=== PATIENT | female | born 1980 | race Caucasian/White ===

== ENCOUNTER 2016-09-28 10:52 | Emergency (ER) | payer BC ==
[2016-09-28 11:22] VITALS: BP 115/68; PULSE 83; RESP 18; TEMP 98.1; O2SAT 93
--- NOTE | 2016-09-28 12:17 | UCPHY ---
H & P Time Seen by Provider: 09/28/16 11:52 Patient Type: Established HPI/ROS: This patient presents with a chief complaint of facial discomfort and is concerned she may have a sinus infection. She became ill 6 days ago with congestion, mild cough some intermittent shortness of breath which is not currently bothering her and last night had a temperature of 99.7degrees degrees with some chills. She has no sore throat. She has pressure in her ears but no actual pain. She denies chest pain. REVIEW OF SYSTEMS: Constitutional: Malaise, fever, chills Eyes: No complaints ENT: See above Respiratory: Mild cough, occasional shortness of breath Cardiac: No chest pain Gastrointestinal: Not addressed Genitourinary: Not addressed Musculoskeletal: No myalgias Skin: No rash Neurological: Headache Smoking Status: Former smoker Physical Exam: GENERAL: Well-appearing, well-nourished and in no acute distress. HEAD: Atraumatic, normocephalic. EYES: Pupils equal round and reactive to light, extraocular movements intact, sclera anicteric, conjunctiva are normal. ENT: TMs normal, nares patent but injected and slightly edematous, oropharynx clear without exudates. Moist mucous membranes. No significant tenderness over the facial sinuses NECK: Normal range of motion, supple without lymphadenopathy or JVD. LUNGS: Breath sounds clear to auscultation bilaterally and equal. No wheezes rales or rhonchi. HEART: Regular rate and rhythm without murmurs, rubs or gallops. EXTREMITIES: Normal range of motion NEUROLOGICAL: Cranial nerves II through XII grossly intact. Normal speech, normal gait. PSYCH: Normal mood, normal affect. SKIN: Warm, dry, normal turgor, no visible rashes or lesions. Constitutional: Initial Vital Signs Temperature (C) 36.7 C 09/28/16 11:20 Heart Rate 83 09/28/16 11:20 Respiratory Rate 18 09/28/16 11:20 Blood Pressure 115/68 09/28/16 11:20 O2 Sat (%) 93 09/28/16 11:20 O2 Delivery Mode Room Air Allergies/Adverse Reactions: No Known Allergies Allergy (Verified 09/28/16 11:15) Home Medications: Medication Instructions Recorded Cholestyramine (with Sugar) 1.75 tsp PO DAILY@14 02/22/15 [CHOLESTYRAMINE POWDER] Herbals/Supplements -Info Only 1 ea PO DAILY 02/23/15 Indomethacin 50 mg PO BID 02/23/15 LORazepam [Ativan (*)] 0.5 - 1 mg PO Q8 PRN #10 tab 02/26/15 oxyCODONE IR [Oxycodone Ir (*)] 5 - 10 mg PO Q3 PRN #10 tab 02/26/15 Ondansetron Odt [Zofran Odt 4 mg 4 mg PO Q4 PRN #20 tab 04/21/15 (RX)] Ranitidine HCl [Zantac] 150 mg PO DAILY #30 tablet 04/21/15 Medical Decision Making Differential Diagnosis: I believe that this patient has a viral syndrome that antibiotics are not indicated. I find no evidence of recurrence of her pericarditis or any other complicating features. Departure - Departure Disposition: Home, Routine, Self-Care Clinical Impression: Upper respiratory infection Qualifiers: URI type: unspecified viral URI Qualified Code(s): J06.9 - Acute upper respiratory infection, unspecified; B97.89 - Other viral agents as the cause of diseases classified elsewhere Condition: Good Instructions: Upper Respiratory Infection (ED) Additional Instructions: If your symptoms this in 5-7 days you should be re-evaluated. Cause for concern would be temperature greater than 101 degrees, increasing facial pain or increasing shortness of breath. Adult Pain & Fever Control: We recommend Acetaminophen (Tylenol) and Ibuprofen (Motrin, Advil) for pain and fever control. When fever is high or pain severe, both drugs can be used at the same time, but at different intervals. Please note the time differences. Your dose is: Acetaminophen [650]mg every 4 to 6 hours ibuprofen [600]mg every [6] hours with food OR naproxen Sodium (Aleve) [440]mg every 12 hours. Note: do not take Acetaminophen with Hydrocodone (Vicodin, Lortab) or Oxycodone (Percocet). These medications also contain Acetaminophen. No more than 3000 mg of Acetaminophen should be taken in 24 hours (for an adult) . The maximal dose of ibuprofen that it is safe in a 24-hour period is 2400 mg. You may take 400 mg every 4 hours, 600 mg every 6 hours or 800 mg every 8 hours safely. - PQRS PQRS Measurement: Not applicable
== END 2016-09-28 12:23 | disposition home or self-care (01) ==
LOC: CED 10:52
DX: J06.9 Acute upper respiratory infection, unspecified (principal); B97.89 Other viral agents as the cause of diseases classified elsewhere; Z87.891 Personal history of nicotine dependence
CPT/HCPCS: 99213-PO; G0463-PO

== ENCOUNTER 2018-11-30 11:46 | Observation (INO) | payer BC ==
[2018-11-30] MEDS ORDERED: NS 1,000 ML IV ONE (11:54)
[2018-11-30 13:09] LABS: PLATELET COUNT 110 10^3/uL (150-400)
[2018-11-30 13:13] LABS: INR 1.09 (0.83-1.16); PROTIME(PATIENT) 13.7 SEC (12.0-15.0)
[2018-11-30] MEDS ORDERED: fentaNYL 100 MCG/2 ML INJ ONE ×2 (13:57→14:40)
[2018-11-30] MEDS ORDERED: LIDOCAINE 1% 300 MG/30 ML SDV ONE (13:57)
[2018-11-30] MEDS ORDERED: MIDAZOLAM 2 MG/2 ML VIAL ONE ×3 (13:58→14:54)
--- NOTE | 2018-11-30 14:43 | SUROPNOTE ---
[facility] Operative Report - Surgery PROCEDURE: Pericardiocentesis DATE OF PROCEDURE: 11/30/2018 COMPLICATIONS: None. JIGSAW OPERATOR: Pancho Hilario MD INDICATION AND APPROPRIATE USE CRITERIA:. Pericardiocentesis was recommended for diagnostic and therapeutic purposes. PROCEDURE IN DETAIL: After informed consent was obtained and n.p.o. status was confirmed, the region of the subxiphoid area was cleaned, prepped and draped in a sterile fashion. Ultrasound and fluoroscopic guidance was used to determine the most appropriate angle for the pericardiocentesis needle as well as depth of the pericardial effusion in that plane. Approximately 10 mL of 1% lidocaine was utilized for local anesthesia. Pericardiocentesis needle was then advanced under direct fluoroscopic guidance. Agitated saline was used to inject demonstrating access of the RV chamber initially. The needle was withdrawn into the pericardial space. Agitated saline injection confirmed placement within the pericardial space. A J wire was then advanced under fluoroscopic guidance into the pericardial space. The dilator was advanced over the wire after the needle was removed and exchanged for a pericardiocentesis drain. Through the catheter we were able to aspirate ~ 380mL of clear fluid consistent with transudate, which will be sent to the laboratory for analysis. We were able to see under echocardiographic guidance that we did tap the pericardial space to nearly dry with the use of that pericardial drain. The catheter was sutured into place with 0 silk and sterile dressing applied. A [place]-Paul[place] drain was attached to the end of the pericardiocentesis catheter and the catheter will remain in place overnight. The patient returned to the post catheterization laboratory floor in good and stable condition. A limited echocardiogram will be performed in the morning to prove that the amount of fluid and blood in the pericardial space has remained minimal. FINAL IMPRESSION: Successful elective pericardiocentesis without immediate complication.
[2018-11-30] MEDS ORDERED: ACETAMINOPHEN 325 MG TAB PO PRN (16:21)
[2018-11-30] MEDS ORDERED: ONDANSETRON DISINTEGRATING 4 MG TAB PO PRN (16:21)
[2018-11-30] MEDS ORDERED: ONDANSETRON 4 MG/2 ML VIAL IVP PRN (16:21)
[2018-11-30] MEDS ORDERED: NS W/ 20 KCl/L 1,000 ML IV SCH (16:30)
[2018-11-30] MEDS: KETOROLAC 15 MG/1 ML SDV IVP SCH (16:50)
[2018-11-30] MEDS ORDERED: LORazepam 0.5 MG TAB PO PRN (17:34)
[2018-12-01] MEDS: KETOROLAC 15 MG/1 ML SDV IVP SCH ×3 (00:40→11:37)
[2018-12-01] MEDS ORDERED: CHOLECALCIFEROL VIT D3 1,000 UNITS TAB PO SCH (09:00)
[2018-12-01] MEDS ORDERED: MULTIVITAMINS 1 EACH TAB PO SCH (09:00)
[2018-12-01] MEDS ORDERED: OMEGA-3 FATTY ACIDS 1,000 MG CAP PO SCH (09:00)
--- NOTE | 2018-12-01 09:20 | ASMTCMCOM ---
CM Note CM Note Notes: Patient chart reviewed for discharge planning purposes. Patient s/p pericardial drain that was elective. No H&P for reference to needs or underlying etiology CM to follow for needs. Plan: TBD Date Signed: 12/01/2018 09:20 AM Electronically Signed By:Bita Kumar RN
[2018-12-01] MEDS ORDERED: MIDAZOLAM 2 MG/2 ML VIAL IVP ONE ×2 (10:00→10:15)
[2018-12-01 11:23] VITALS: BP 116/72
--- NOTE | 2018-12-01 11:32 | GDS ---
[f rep st] DISCHARGE SUMMARY ADMIT DIAGNOSIS: Pericardial effusion with tamponade physiology. DISCHARGE DIAGNOSIS: Status post pericardial effusion tap with complete resolution of pericardial ef fusion. HISTORY OF PRESENT ILLNESS: For details of history of present illness, please see the recently dicta keesha Younger. Briefly, the patient has a history of tick bite, as well as some positive autoimmune ma rkers for Sjogren disease, and has a recurrent pericardial effusion. She was tapped approximately 3- 4 years ago under the care of Dr. Mariano Hearn, and a drain was not left in place at that time. A routine echo documented a pericardial effusion with right atrial collapse consistent with tamponade physiology. For that indication, the patient was electively admitted for a pericardiocentesis. HOSPITAL COURSE: The patient underwent an echo and fluoroscopic-guided pericardiocentesis under my c are on her first hospital day, without complication. The drain was left in place overnight. There w as a minimal amount of fluid extracted from the drain once the patient was noted to be tapped to dry on the basis of the echocardiogram performed during the procedure. During one of the aspiration epis odes, the patient had a vasovagal event where her heart rate dropped of 30. She became hypotensive a nd diaphoretic. This resolved on its own. On the morning of her discharge from the hospital, the patient is medically stable and ready for disc harge to home. Her blood pressure is 112/65, pulse rate 63, respirations 16 and unlabored. Oxygen s aturation 95% on room air. A limited echo was performed documenting that the pericardial effusion truong d been tapped to dry. The pericardial effusion laboratory studies are pending at the time of this di db. There were 180 WBCs, 210 RBCs in the pericardial fluid. The pericardial LDH was 262. The glucose was 72, and the pericardial amylase was less than 30. These findings are most consistent wit h a transudative pericardial effusion. There are no current signs of infection. In fact, the patien t's white count is actually low at 2.91. Platelet count also low at 110. The absolute lymphocytes a re 0.83, absolute monocytes 0.26. The patient is to be discharged home in good and stable condition and has a plan to follow up with Dr Syed Stuart, my PA, in early December with a pre clinic limited echocardiogram to evaluate for recurrenc e of pericardial effusion. I have asked that the patient follow up with Dr. Jersey Echols and with Dr. Joe Han of the Infectious Disease service, as she has seen both of those individuals in the pas t. I would like their opinions on the fact that she has had a recurrent pericardial effusion with a low white cell and platelet cell line on her laboratory studies. The only other abnormality noted was that her BNP was 231, which is minimally elevated for a patient of her age. FINAL IMPRESSION: Pericardial effusion with tamponade, physiology status post tap. The patient will be discharged in good and stable condition. Her activity is to be limited by no strenuous activity for the next 7-10 days as the tract leading to her pericardial space heals. She knows to return prom ptly to the emergency department for chest pain, pressure, tightness, shortness of breath, fainting, near fainting, palpitations, or other clinical symptoms of concern. /[id number]/MODL
--- NOTE | 2018-12-01 11:46 | ASMTDCNOTE ---
Case Management Discharge Discharge Order Complete? Answers: Yes Patient to Obtain Answers: via Family Medications Transportation Arranged Answers: Family/Friends Family Notified Answers: Yes Discharge Comments Notes: Patient medically ready for discharge to home. No current neerds identified. CM available should needs arise. Date Signed: 12/01/2018 11:46 AM Electronically Signed By:Bita Kumar RN
--- NOTE | 2018-12-03 13:59 | CPEKG ---
Test Reason : OPEN Blood Pressure : / mmHG Vent. Rate : 063 BPM Atrial Rate : 062 BPM P-R Int : 117 ms QRS Dur : 074 ms QT Int : 408 ms P-R-T Axes : 056 078 059 degrees QTc Int : 418 ms Sinus rhythm Confirmed by Asad Tariq ([id number]) on 12/03/2018 1:58:27 PM Referred By: Pancho Hilario Confirmed By:Asad Tariq
--- NOTE | 2018-12-03 20:34 | ECHO ---
[email or web address] [place] [id number] Main: [phone] Echocardiography Examination Transthoracic Name: MONTANA SALINAS MR#: [id number] Study Date: 12/01/2018 Study Time: 10:30 AM Date of : 1980 Age: 38 year(s) Height: ( ) Weight: ( ) BSA: Gender: Female Examination: Limited Echo Contrast: Image Quality: Adequate Rhythm: Heart Rate: BP: / Indication: Eval for residual pericardial fluid after drain pull Procedure Staff Referring Physician: Paving Stone Installer: Niurka Johnson [facility] Reading Physician: Melody Abraham MD Requesting Provider: Ordering Physician: Pancho Hilario MD Indication: Eval for residual pericardial fluid after drain pull Conclusions 1. Normal LV systolic function 2. Compared with 11/30/2018 (during pericardiocentesis) the pericardial effusion is now trivial (previously moderate to large. Findings Pericardium: Trivial anterior pericardial effusion. Exam Details Procedure Ordered: Limited Echo Procedure Status: Routine study Image Quality: Adequate Facility Location: Cardiac Echo 1 (No Signature Object) Patient: MONTANA SALINAS Study Date: 12/01/2018 Page 1 of 1 10:30 AM [id number]
== END 2018-12-01 12:30 | disposition home or self-care (01) ==
LOC: FCATH 11:46 → F2W 16:21
PROVIDERS: ADMIT Internal Medicine Cardiovascular Disease; ATTEND Internal Medicine Cardiovascular Disease
PROC: 0W9D30Z Drainage of Pericardial Cavity with Drainage Device, Percutaneous Approach (ICD-10-PCS; principal; 2018-11-30)
DX: I31.3 Pericardial effusion (noninflammatory) (principal); I31.4 Cardiac tamponade; M35.00 Sjogren syndrome, unspecified; Z86.19 Personal history of other infectious and parasitic diseases
CPT/HCPCS: 33015; 93005; 93308; G0378; J1885; J2250; J3010

== ENCOUNTER 2018-12-03 17:43 | Emergency (ER) | payer BC ==
--- NOTE | 2018-12-03 18:03 | EDPHY ---
H & P Stated Complaint: COMPLICATION S/P PERICARDIOCENTESIS Time Seen by Provider: 12/03/18 18:03 - Personal History Current Tetanus/Diphtheria Vaccine: Yes - Medical/Surgical History Hx Asthma: No Hx Chronic Respiratory Disease: No Hx Diabetes: No Hx Cardiac Disease: No Hx Renal Disease: No Hx Cirrhosis: No Hx Alcoholism: No Hx HIV/AIDS: No Hx Splenectomy or Spleen Trauma: No Other PMH: TONSILS/ADNOIDS. 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", pericarditis, autoimmune - Social History Smoking Status: Former smoker Constitutional: Initial Vital Signs Temperature (C) 36.8 C 12/03/18 17:54 Heart Rate 88 12/03/18 17:54 Respiratory Rate 16 12/03/18 17:54 Blood Pressure 158/90 H 12/03/18 17:54 O2 Sat (%) 95 12/03/18 17:54 O2 Delivery Mode Room Air Allergies/Adverse Reactions: No Known Allergies Allergy (Verified 09/28/16 11:15) Home Medications: Medication Instructions Recorded Cholecalciferol Vit D3 [Vitamin D3 5,000 units PO DAILY 11/23/18 (*)] Herbals/Supplements -Info Only 1 ea PO DAILY 11/23/18 Multivitamins [Multivitamin (*)] 1 each PO DAILY 11/23/18 [place]-3 Fatty Acids [Fish Oil 1000 1,000 mg PO DAILY 11/23/18 mg (*)] Medical Decision Making ED Course/Re-evaluation: CHIEF COMPLAINT: HISTORY OF PRESENT ILLNESS: must have 4 elements: Location, Quality, Severity , Duration, Timing, Context, Modifying Factors, Associated Signs and Symptoms REVIEW OF SYSTEMS: A comprehensive 10 system review of systems is otherwise negative aside from elements mentioned in the history of present illness and medical decision making. PHYSICAL EXAM: HR, BP, O2 Sat, RR. Temp noted General Appearance: Alert, well hydrated, appropriate, and non-toxic appearing. Head: Atraumatic without scalp tenderness or obvious injury Eyes: Pupils equal, round, reactive to light and accommodation, EOMI, no trauma , no injection. Ears: Clear bilaterally, no perforation, normal landmarks Nose: Atraumatic, no rhinorrhea, clear. Throat: There is no erythema or exudates, no lesions, normal tonsils, mucus membranes moist. Neck: Supple, 2+ carotid upstroke, nontender, no lymphadenopathy. Respiratory: No retractions, no distress, no wheezes, and no accessory muscle use. Lungs are clear to auscultation bilaterally. Cardiovascular: Regular rate and rhythm, no murmurs, rubs, or gallops. Bilateral carotid, radial, dorsalis pedis, and posterior tibial pulses intact. Good capillary refill all extremities. Gastrointestinal: Abdomen is soft, nontender, non-distended, no masses, no rebound, no guarding, no peritoneal signs. Musculoskeletal: Normal active ROM of all extremities, atraumatic. Neurological: Alert, appropriate, and interactive. The patient has normal DTRs and non-focal cranial nerves, motor, sensory, and cerebellar exam. Skin: No rashes, good turgor, no nodules on palpation. Past medical history: Past surgical history: Family history: Social history: DIAGNOSTICS/PROCEDURES/CRITICAL CARE TIME: DIFFERENTIAL DIAGNOSIS: MEDICAL DECISION MAKING: Departure - Departure Referrals: NONE *PRIMARY CARE P,. [Primary Care Provider] - As per Instructions
--- NOTE | 2018-12-03 18:09 | EDPHY ---
H & P Time Seen by Provider: 12/03/18 18:03 HPI/ROS: Chief complaint. Chest pain HPI. 38-year-old female presents to the emergency department with dull achy left anterior chest discomfort and some radiation to her left arm. She a pericardiocentesis 4 days ago for recurrent pericardial effusion. She has some left anterior chest discomfort. No shortness of breath though feels she is working slightly harder to breathe. She has a history of tick bite and autoimmune markers for Sjogren's with recurrent pericardial effusion. No fever cough. No unusual leg pain or swelling. No abdominal pain. Symptoms are not worse with exertion or deep breathing. ROS 10 systems were reviewed and negative with the exception of the elements mentioned in the history of present illness Past Medical/Surgical History: Recurrent pericardial effusion with pericardiocentesis, likely autoimmune disease, Family history is positive only for grandfather with ND Social History: , nonsmoker, no alcohol Smoking Status: Former smoker Physical Exam: General Appearance: Alert well-developed female mild distress. Vital signs are stable Eyes: Pupils equal and round no pallor or injection. ENT, Mouth: Mucous membranes are moist. Respiratory: There are no retractions, lungs are clear to auscultation. Cardiovascular: Regular rate and rhythm. Gastrointestinal: Abdomen is soft and nontender, no masses, bowel sounds normal. Neurological: Awake and alert, sensory and motor exams grossly normal. Skin: Warm and dry, no rashes. Musculoskeletal: Neck is supple nontender. Extremities symmetrical, full range of motion. Psychiatric: Patient is oriented X 3, there is no agitation. Constitutional: Initial Vital Signs Temperature (C) 36.8 C 12/03/18 17:54 Heart Rate 88 12/03/18 17:54 Respiratory Rate 16 12/03/18 17:54 Blood Pressure 158/90 H 12/03/18 17:54 O2 Sat (%) 95 12/03/18 17:54 O2 Delivery Mode Room Air Allergies/Adverse Reactions: No Known Allergies Allergy (Verified 09/28/16 11:15) Home Medications: Medication Instructions Recorded Cholecalciferol Vit D3 [Vitamin D3 5,000 units PO DAILY 11/23/18 (*)] Herbals/Supplements -Info Only 1 ea PO DAILY 11/23/18 Multivitamins [Multivitamin (*)] 1 each PO DAILY 05/10/19 [place]-3 Fatty Acids [Fish Oil 1000 1,000 mg PO DAILY 11/23/18 mg (*)] Colchicine 0.6 mg PO DAILY #7 tablet 12/03/18 Medical Decision Making - Diagnostics EKG Interpretation: EKG interpreted by me shows normal sinus rhythm normal interval and axis. QRS is numb normal. There is no significant ST elevation or depression. No arrhythmia. The rate is 62 Imaging Results: Imaging Impressions Chest X-Ray 12/03/18 18:25 IMPRESSION: No evidence for acute cardiopulmonary abnormality. Echocardiogram reviewed by me and discussed with Dr. Abraham for Cardiology shows apparent small fibrin or clot it in the pericardium but no evidence for tamponade or significant reaccumulation One-view chest x-ray interpreted by me is normal Procedures: IV normal saline, monitor ED Course/Re-evaluation: Serial evaluations patient is stable Re-evaluation again at 8 5:00 p.m.. Patient, her , and I discussed imaging lab results. We discussed treatment plan including criteria for return importance of follow-up and further evaluation. She expresses understanding and agreement I consulted discussed case with Dr. Abraham who recommends colchicine 0.6 mg daily for 1 week as well as ibuprofen 400 mg 3 times daily for a week. Differential Diagnosis: I considered pericarditis, acute coronary syndrome, pneumothorax, pericardial tamponade - Data Points Laboratory Results: Laboratory Results 12/03/18 18:35 12/03/18 18:35 12/03/18 12/03/18 12/03/18 18:36 18:35 18:35 WBC RBC Hgb Hct MCV MCH MCHC RDW Plt Count MPV Neut % (Auto) Lymph % (Auto) [place] % (Auto) Eos % (Auto) Baso % (Auto) Nucleat RBC Rel Count Absolute Neuts (auto) Absolute Lymphs (auto) Absolute Monos (auto) Absolute Eos (auto) Absolute Basos (auto) Absolute Nucleated RBC Immature Gran % Immature Gran # ESR D-Dimer 0.37 ug/mLFEU ug/mLFEU (0.00-0.50) Sodium 137 mEq/L mEq/L (135-145) Potassium 4.0 mEq/L mEq/L (3.5-5.2) Chloride 106 mEq/L mEq/L (97-110) Carbon Dioxide 19 mEq/l L mEq/l (22-31) Anion Gap 12 mEq/L mEq/L (6-14) BUN 17 mg/dL mg/dL (7-23) Creatinine 0.7 mg/dL mg/dL (0.6-1.0) Estimated GFR > 60 Glucose 79 mg/dL mg/dL (70-100) Calcium 9.2 mg/dL mg/dL (8.5-10.4) POC Troponin I 0.00 ng/mL ng/mL (0.00-0.08) 12/03/18 18:35 WBC 3.04 10^3/uL L 10^3/uL (3.80-9.50) RBC 4.49 10^6/uL 10^6/uL (4.18-5.33) Hgb 14.7 g/dL g/dL (12.6-16.3) Hct 42.9 % % (38.0-47.0) MCV 95.5 fL fL (81.5-99.8) MCH 32.7 pg pg (27.9-34.1) MCHC 34.3 g/dL g/dL (32.4-36.7) RDW 11.8 % % (11.5-15.2) Plt Count 111 10^3/uL L 10^3/uL (150-400) MPV 11.7 fL fL (8.7-11.7) Neut % (Auto) 63.2 % % (39.3-74.2) Lymph % (Auto) 28.6 % % (15.0-45.0) [place] % (Auto) 7.2 % % (4.5-13.0) Eos % (Auto) 0.0 % L % (0.6-7.6) Baso % (Auto) 0.7 % % (0.3-1.7) Nucleat RBC Rel Count 0.0 % % (0.0-0.2) Absolute Neuts (auto) 1.92 10^3/uL 10^3/uL (1.70-6.50) Absolute Lymphs (auto) 0.87 10^3/uL L 10^3/uL (1.00-3.00) Absolute Monos (auto) 0.22 10^3/uL L 10^3/uL (0.30-0.80) Absolute Eos (auto) 0.00 10^3/uL L 10^3/uL (0.03-0.40) Absolute Basos (auto) 0.02 10^3/uL 10^3/uL (0.02-0.10) Absolute Nucleated RBC 0.00 10^3/uL 10^3/uL (0-0.01) Immature Gran % 0.3 % % (0.0-1.1) Immature Gran # 0.01 10^3/uL 10^3/uL (0.00-0.10) ESR 8 MM/HR MM/HR (0-20) D-Dimer Sodium Potassium Chloride Carbon Dioxide Anion Gap BUN Creatinine Estimated GFR Glucose Calcium POC Troponin I Point of Care Test Results: Chemistry 12/03/18 18:36 POC Troponin I 0.00 ng/mL ng/mL (0.00-0.08) Departure - Departure Disposition: Home, Routine, Self-Care Clinical Impression: Chest pain Qualifiers: Chest pain type: unspecified Qualified Code(s): R07.9 - Chest pain, unspecified Condition: Good Instructions: Chest Pain (ED) Additional Instructions: Ibuprofen 400 mg 3 times daily for 7 days Colchicine 0.6 mg daily for 1 week Return for worsening chest discomfort, trouble breathing Re-evaluation by Dr. Lopez in the next 2-3 days for continuing symptoms Referrals: NONE *PRIMARY CARE P,. [Primary Care Provider] - As per Instructions Pancho Hilario MD [Medical Doctor] - 2-3 days, if not improved Prescriptions: Colchicine 0.6 mg PO DAILY #7 tablet
[2018-12-03 18:46] LABS: PLATELET COUNT 111 10^3/uL (150-400)
--- NOTE | 2018-12-03 19:09 | CPEKG ---
Test Reason : OPEN Blood Pressure : / mmHG Vent. Rate : 062 BPM Atrial Rate : 061 BPM P-R Int : 121 ms QRS Dur : 081 ms QT Int : 433 ms P-R-T Axes : 074 065 040 degrees QTc Int : 440 ms Sinus rhythm Left atrial enlargement Confirmed by Zina Jimenez ([id number]) on 12/03/2018 7:09:05 PM Referred By: ZINA JIMENEZ Confirmed By:Zina Jimenez
--- NOTE | 2018-12-03 20:30 | ECHO ---
[email or web address] [address] [address] Main: [phone] Echocardiography Examination Transthoracic Name: MONTANA SALINAS MR#: [id number] Study Date: 12/03/2018 Study Time: 07:10 PM Date of : 1980 Age: 38 year(s) Height: 172.7 cm (68 in.) Weight: 58.97 kg (130 lb.) BSA: 1.7 m2 Gender: Female Examination: Echo Contrast: Image Quality: Adequate Rhythm: Heart Rate: BP: 153 mmHg/84 mmHg Indication: Chest Pain Procedure Staff Referring Physician: [employer] Aid Coordinator: Ruth Kirkpatrick RUST Reading Physician: Melody Abraham MD Requesting Provider: Ordering Physician: Joe Jimenez Indication: Chest Pain Measurements Chambers AV/MV Label Value Normal Value Label Value Normal Value LVOT Vmax 0.94 m/s (0.7m/s - 1.1m/s) AV PGmax 7 mmHg LVOTd 2 cm (1.8cm - 2cm) AV PGmean 4 mmHg LVOT VTI 20.8 cm (18cm - 22cm) AV Vmax 1.28 m/s LVDd, 2D 4.5 cm (3.9cm - 5.3cm) TONY (Vmax) 2.3 cm2 LVDs, 2D 2.7 cm (2.1cm - 4cm) TONY (VTI) 2.3 cm2 IVSd, 2D 0.7 cm (0.6cm - 1.1cm) MV E Vmax 1.07 m/s LVPWd, 2D 0.7 cm MV A Vmax 0.51 m/s LVEF, BP 64 % (55% - 70%) MV E/A 2.1 LVEF, 2D 71 % (54% - 74%) MV E/E' lateral 7.2 LVOT PGmean 2 mmHg MV E/E' septal 9.4 (0.6 - 2.6) LVOT Vmean 0.73 m/s MV DT 197 ms RVDd, 2D 2.3 cm (1.9cm - 3.8cm) MV E' septal 0.11 m/s LADs, 2D 2.2 cm (2.7cm - 3.8cm) MV PHT 0.07 s RA Area 9 cm2 MVA PHT 3.3 cm2 Additional Vessels MV E' lateral 0.15 m/s Label Value Normal Value MV E/E' mean 8.23 AoAsc 3.1 cm MV PHT 67 ms AoRoot, 2D 3.2 cm (1.4cm - 2.6cm) MV E' mean 0.13 m/s IVC 1.2 cm (1.2cm - 2.3cm) TV/PV Patient: MONTANA SALINAS Study Date: 12/03/2018 Page 1 of 3 07:10 PM Label Value Normal Value PV PGmax 3 mmHg PV Vmax, Caliper 0.92 m/s (0.6m/s - 0.9m/s) Conclusions 1 . Normal LV size and systolic function. LVEF is 64%. Normal wall motion. 2. RV is normal in size and systolic function. 3. MIld MR 4. Small anterior pericardial effusion containing fibrinous debris vs clot. No echocardiographic evidence of tamponade. 5. Compared directly with 11/30/2018 (during pericardiocentesis) and 12/01/2018 the effusion is much improved compared with pre-pericardiocentesis but slightly more prominent compared with one day post pericardiocentesis Findings Left Ventricle: Left ventricle is normal in size. Normal global systolic left ventricular function. The ejection fraction, measured by Simpsons method, is 64 %. EF range is estimated at 60 % - 65 %. Left ventricle wall thickness is normal. There are no regional wall motion abnormalities. Left ventricular diastolic function parameters are normal. No LV hypertrophy. Right Ventricle: Normal size right ventricle. Right ventricular systolic function is normal. Left Atrium: The left atrium is normal in size. Right Atrium: The right atrium is normal in size. Mitral Valve: Mitral valve appears structurally normal. Mild mitral regurgitation. No mitral valve stenosis. Aortic Valve: Aortic leaflets are structurally normal. No significant aortic valve regurgitation. There is no aortic stenosis. Tricuspid Valve: Tricuspid valve leaflets are structurally normal. Trivial tricuspid regurgitation. No tricuspid valve stenosis. Pulmonary artery pressure cannot be assessed due to inadequate TR signal. Pulmonic Valve: Pulmonic leaflets are structurally normal. No significant pulmonic valve regurgitation is evident. Aorta: The aortic root size in 2D measures 3.2 cm. The ascending aorta measures 3.1 cm. Aorta Measurements AoRoot, 2D is 3.2 cm. IVC: The inferior vena cava is normal in size. Pericardium: There is a small pericardial effusion anteriorly containing fibrinous debris vs clot. This is slightly increased since post pericardiocentesis echo imaging done 12/01/18. Exam Details Procedure Ordered: Echo Procedure Status: Routine study Image Quality: Adequate Facility Location: Emergency Room (No Signature Object) Patient: MONTANA SALINAS Study Date: 12/03/2018 Page 2 of 3 07:10 PM Patient: MONTANA SALINAS Study Date: 12/03/2018 Page 3 of 3 07:10 PM [id number]
[2018-12-03] MEDS ORDERED: NS 1,000 ML IV ONE (20:40)
[2018-12-03 21:16] VITALS: BP 134/82
== END 2018-12-03 21:12 | disposition home or self-care (01) ==
DX: R07.9 Chest pain, unspecified (principal)
CPT/HCPCS: 84484-ER